=== PATIENT | female | born 1960 | race Caucasian/White ===

== ENCOUNTER 2024-03-10 12:10 | Outpatient (OUT) | payer OTHER, SELFPAY ==
--- NOTE | 2024-03-10 12:37 | XR_ITS ---
The [address] [address] Patient Name: LORETO HAMPTON MRN: [id number] date: 1960 Sex: F Assigned Patient Location: [facility] Current Patient Location: [facility] Accession/Order Number: [id number] Exam Date: 03/10/2024 12:28 Report Date: 03/11/2024 08:06 At the request of: DRAKE MERRITT Procedure: XR hip LT min 2V EXAM: XR lumbar spine min 4V, XR hip LT min 2V HISTORY: low back pain COMPARISON: None. TECHNIQUE: Routine views were obtained for lumbar spine and pelvis with left hip. FINDINGS/IMPRESSION: Severe osteopenia limits evaluation for subtle nondisplaced fractures. PELVIS AND LEFT HIP: There is no radiographic evidence of acute fracture or subluxation. Mild left hip joint osteoarthritis is seen. LUMBAR SPINE: AP, lateral and oblique views were obtained for lumbar spine 1. There is levoconvex scoliosis measuring 40 degrees from superior endplate of L1 to inferior endplate of L5. 2. Grade 1 retrolisthesis seen at L1 over L2, L2 over L3, and L3 over L4. 3. There are diffuse disc degenerative changes. 4. Postsurgical changes seen in the abdomen involving the right upper quadrant, left upper quadrant as well as the left hemipelvis. Large amount of air and fecal material seen in the visualized bowel loops. Electronically authenticated by: LINNEA VILLALTA Date: 03/11/2024 08:06
--- NOTE | 2024-03-10 12:37 | XR_ITS ---
The [address] [address] Patient Name: LORETO HAMPTON MRN: [id number] date: 1960 Sex: F Assigned Patient Location: [facility] Current Patient Location: [facility] Accession/Order Number: [id number] Exam Date: 03/10/2024 12:28 Report Date: 03/11/2024 08:06 At the request of: DRAKE MERRITT Procedure: XR lumbar spine min 4V EXAM: XR lumbar spine min 4V, XR hip LT min 2V HISTORY: low back pain COMPARISON: None. TECHNIQUE: Routine views were obtained for lumbar spine and pelvis with left hip. FINDINGS/IMPRESSION: Severe osteopenia limits evaluation for subtle nondisplaced fractures. PELVIS AND LEFT HIP: There is no radiographic evidence of acute fracture or subluxation. Mild left hip joint osteoarthritis is seen. LUMBAR SPINE: AP, lateral and oblique views were obtained for lumbar spine 1. There is levoconvex scoliosis measuring 40 degrees from superior endplate of L1 to inferior endplate of L5. 2. Grade 1 retrolisthesis seen at L1 over L2, L2 over L3, and L3 over L4. 3. There are diffuse disc degenerative changes. 4. Postsurgical changes seen in the abdomen involving the right upper quadrant, left upper quadrant as well as the left hemipelvis. Large amount of air and fecal material seen in the visualized bowel loops. Electronically authenticated by: LINNEA VILLALTA Date: 03/11/2024 08:06
== END 2024-03-10 12:11 | disposition home or self-care (01) ==
LOC: RAD 12:14
PROVIDERS: PCP Nurse Practitioner; Visit Provider Nurse Practitioner
DX: M25.552 Pain in left hip (principal); M54.50 Low back pain, unspecified; M51.36 Other intervertebral disc degeneration, lumbar region; M85.88 Other specified disorders of bone density and structure, other site
CPT/HCPCS: 72110; 73502